=== PATIENT | female | born 1990 | race Two or more races ===

== ENCOUNTER 2023-06-22 07:11 | Emergency (ER) | payer OTHER ==
[~2023-06-22] VITALS: Ht 160 cm; Wt 55.3 kg
[2023-06-22 09:03] LABS: HEMATOCRIT 37.3 % (36.0-45.00); HEMOGLOBIN 12.7 g/dL (12.0-15.00); MEAN CELL VOLUME 87.8 fL (80.00-100.00); MEAN CORPUSCULAR HEMOGLOBIN 29.8 pg (27.00-32.0); PLATELET COUNT 330 K/uL (150-450); RED BLOOD COUNT 4.25 M/uL (4.00-6.00); RED CELL DISTRIBUTION WIDTH 12.9 % (11.5-14.5)
[2023-06-22] MEDS ORDERED: ZYRTEC10 M3 PO (10:02)
[2023-06-22] MEDS ORDERED: FLONASE ALLERG9.9 ML NASAL (10:02)
[2023-06-22] MEDS ORDERED: TUSNEL DM LIQU473 ML PO (10:02)
== END 2023-06-22 10:22 | disposition home or self-care (01) ==
LOC: ER 07:11
PROVIDERS: General Practice
DX: R53.81 Other malaise (principal); J06.9 Acute upper respiratory infection, unspecified; Z20.822 Contact with and (suspected) exposure to COVID-19; Z88.6 Allergy status to analgesic agent